=== PATIENT | male | born 1995 | race Two or more races ===

== ENCOUNTER 2016-09-22 15:59 | Emergency (ER) | payer SELFPAY ==
[~2016-09-22] VITALS: Ht 175.3 cm; Wt 68.0 kg
[~2016-09-22 15:59] MED LIST: ETOMIDATE (2MG/ML) 20ML VIAL IV ONE; MIDAZOLAM HCL 5 MG/ML-1ML VIAL ONE; SUCCINYLCHOLINE CHLORIDE 20 MG/ML 10ML VIAL IV ONE
[2016-09-22] MEDS ORDERED: PROPOFOL 100 ML IV ONE (16:09)
[2016-09-22] MEDS ORDERED: TETANUS-DIPTH-ACEL PERTUSSIS 0.5ML SYRG IM ONE (16:30)
[2016-09-22] MEDS ORDERED: ceFAZolin 1GM/50ML D5W 100 ML IV ONE (16:30)
[2016-09-22] MEDS ORDERED: PROPOFOL 100 ML IV SCH (16:39)
[2016-09-22] MEDS ORDERED: MIDAZOLAM DRIP 50 mg/50mL NS 50 ML IV ONE (16:48)
[2016-09-22] MEDS ORDERED: ROCURONIUM 10MG/ML 10ML VIAL IV ONE ×3 (16:49→18:00)
[2016-09-22 16:53] LABS: Basophils # (auto) 0 uL; Basophils % (auto) 0.1 % (0.0-2.0); CONDITION Y; Eosinophils # (auto) 0 uL; Eosinophils % (auto) 0.2 % (0.0-7.0); Hematocrit 44.1 % (41.0-53.0); Lymphocytes # (auto) 1.8 uL; Lymphocytes % (auto) 11.2 % (10.0-50.0); Mean Corpuscular Hemoglobin 31.7 pg (28.0-32.0); Mean Corpuscular Volume 93.4 fL (80.0-100.0); Mean Platelet Volume 9.3 fL (7.4-10.4); Monocytes # (auto) 0.9 uL; Monocytes % (auto) 5.4 % (0.0-12.0); Neutrophils # (auto) 13.4 uL; Neutrophils % (auto) 83.1 % (37.0-80.0); Platelet Count (auto) 309 10^3/uL (140-450); Red Cell Distribution Width 13.1 % (11.6-16.0); White Blood Cell 16.1 10^3/uL (4.4-10.8)
[2016-09-22 17:09] LABS: Urine Bilirubin Negative (Negative); Urine Blood Negative /uL (Negative); Urine Color Yellow (Yellow); Urine Glucose Normal (Normal); Urine Ketone Negative (Negative); Urine Mucus FEW (None Seen); Urine Nitrite Negative (Negative); Urine RBC <1 /hpf (0 - 3); Urine pH 6.5 (5.0-8.0)
[2016-09-22 17:15] LABS: Albumin 3.1 g/dL (3.4-5.0); BUN/Creatinine Ratio 8.2; Bilirubin, Total 1.3 mg/dL (0.2-1.0); Calcium 7.4 mg/dL (8.5-10.1); Total Protein 5.7 g/dL (6.4-8.2)
[2016-09-22 17:16] VITALS: BP 148/89
[2016-09-22 17:32] LABS: Potassium 3.4 mmol/L (3.5-5.1)
[2016-09-22] MEDS ORDERED: MIDAZOLAM HCL 5 MG/ML-1ML VIAL IV ONE (18:00)
[2016-09-22] MEDS ORDERED: ETOMIDATE (2MG/ML) 20ML VIAL IV ONE ×2 (18:00)
[2016-09-22] MEDS ORDERED: SUCCINYLCHOLINE CHLORIDE 20 MG/ML 10ML VIAL IV ONE (18:00)
[2016-09-22] MEDS ORDERED: LIDOCAINE HCL 100 MG/5ML (2%) SYRG INJ IV ONE (18:00)
== END 2016-09-22 17:34 | disposition short-term general hospital (02) ==
LOC: ER 16:02
DX: S01.90XA Unspecified open wound of unspecified part of head, initial encounter (principal); Y93.89 Activity, other specified; Y99.8 Other external cause status; Y92.89 Other specified places as the place of occurrence of the external cause
CPT/HCPCS: 31500; 36415; 51702; 71010; 80053; 80307; 81001; 85025; 90471; 90715; 96365; 96375; 96376; 99152; 99291; J0330; J0690; J2250; J2704